=== PATIENT | female | born 1985 | race Caucasian/White ===

== ENCOUNTER → 2025-01-25 13:18 | Outpatient (REF) | payer OTHER, SELFPAY | LOC: RAD 13:18 | PROVIDERS: ATTENDING PHYSICIAN Obstetrics & Gynecology | DX: O26.851 Spotting complicating pregnancy, first trimester (principal) | CPT/HCPCS: 76801 ==

== ENCOUNTER → 2025-03-07 09:56 | Outpatient (REF) | payer OTHER, SELFPAY | LOC: PNTC 09:56 | PROVIDERS: ATTENDING PHYSICIAN Obstetrics & Gynecology | DX: O09.529 Supervision of elderly multigravida, unspecified trimester (principal) | CPT/HCPCS: 76805 ==

== ENCOUNTER → 2025-04-04 15:51 | Outpatient (REF) | payer OTHER, SELFPAY | LOC: PNTC 15:51 | PROVIDERS: ATTENDING PHYSICIAN Obstetrics & Gynecology | DX: O09.529 Supervision of elderly multigravida, unspecified trimester (principal) | CPT/HCPCS: 76811 ==

== ENCOUNTER → 2025-04-23 13:19 | Outpatient (REF) | payer OTHER, SELFPAY | LOC: PNTC 13:19 | PROVIDERS: ATTENDING PHYSICIAN Student in an Organized Health Care Education/Training Program | DX: O99.419 Diseases of the circulatory system complicating pregnancy, unspecified trimester (principal) | CPT/HCPCS: 76815 ==